=== PATIENT | female | born 1995 | race Caucasian/White ===

== ENCOUNTER 2023-05-27 22:31 | Emergency (ER) | payer OTHER ==
[~2023-05-27] VITALS: Ht 144.8 cm; Wt 59.0 kg
[2023-05-27 23:11] VITALS: BP 115/65; PULSE 94; RESP 16; TEMP 97.8; O2SAT 100
--- NOTE | 2023-05-27 23:16 | NUR ---
TO LOBBY FOLLOWING TRIAGE
--- NOTE | 2023-05-27 23:49 | NUR ---
PT AMBULATED TO BED 11
--- NOTE | 2023-05-28 00:01 | NUR ---
BOYFRIEND IS AT THE BEDSIDE
[2023-05-28] MEDS ORDERED: cefTRIAXone 1,000 MG in LIDOCAINE MPF 1% 2.1 ML IM ONE (00:25)
[2023-05-28] MEDS ORDERED: KETOROLAC 60 MG/2 ML VIAL IM ONE (00:25)
[2023-05-28] MEDS ORDERED: LIDOCAINE MPF 1% 5 ML ONE (00:37)
[2023-05-28] MEDS ORDERED: cefTRIAXone 1,000 MG VIAL ONE (00:37)
[2023-05-28] MEDS ORDERED: PENI500T20 PO (01:11)
[2023-05-28] MEDS ORDERED: NAPR-54 PO (01:11)
--- NOTE | 2023-05-28 01:15 | NUR ---
DR BENÍTEZ IS DISCHARGING THE PT
[2023-05-28 01:16] VITALS: BP 115/65; PULSE 94; RESP 16; TEMP 97.8; O2SAT 100
--- NOTE | 2023-05-28 01:21 | NUR ---
Patient discharged with v/s stable. Written and verbal after care instructions given and explained. Patient alert, oriented and verbalized understanding of instructions. Ambulatory with steady gait. All questions addressed prior to discharge. ID band removed. Patient advised to follow up with PMD. Rx of NAPROSYN, PENICILLIN given. Patient educated on indication of medication including possible reaction and side effects. Opportunity to ask questions provided and answered.
== END 2023-05-28 01:21 | disposition home or self-care (01) ==
LOC: MED 22:31
DX: K02.9 Dental caries, unspecified (principal); K08.89 Other specified disorders of teeth and supporting structures; J45.909 Unspecified asthma, uncomplicated; Z79.1 Long term (current) use of non-steroidal anti-inflammatories (NSAID); Z79.2 Long term (current) use of antibiotics
CPT/HCPCS: 96372; 99284; J0696; J1885; J2001